=== PATIENT | female | born 1970 | race Caucasian/White ===

== ENCOUNTER 2019-05-04 05:40 | Day surgery (SDC) | payer OTHER ==
[~2019-05-04] VITALS: Ht 157.5 cm; Wt 63.5 kg
[~2019-05-04 05:40] MED LIST: CLONAZEPAM2 MG PO; LAMICTAL200 M1 PO; WELLBUTRIN XL300 MG PO
[2019-05-05] MEDS ORDERED: NAPR500T14 PO (09:20)
[2019-05-05] MEDS ORDERED: TYLENOL #3 PO (09:20)
[2019-05-05] MEDS ORDERED: PYRIDIUM100 M1 PO (09:23)
== END 2019-05-05 08:00 | disposition home or self-care (01) ==
LOC: CIR.AMB 05:40 → O/R 20:09 → CIR.AMB 20:09 → SURG 20:09 → CIR.AMB 05-05 08:00 → SURG 05-05 10:45 → O/R 05-05 10:45
DX: N92.0 Excessive and frequent menstruation with regular cycle (principal); N81.5 Vaginal enterocele; N81.11 Cystocele, midline; D25.2 Subserosal leiomyoma of uterus; N72 Inflammatory disease of cervix uteri